=== PATIENT | male | born 1965 | race Caucasian/White ===

== ENCOUNTER 2016-12-22 19:00 | Observation (INO) | payer OTHER, BC ==
[~2016-12-22] VITALS: Ht 180.3 cm; Wt 110.0 kg
[2016-12-22 19:47] LABS: HEMATOCRIT 47.5 % (38.0-50.0); MCH 29.3 PG (29.0-34.0); MCHC 32.8 G/DL (30.0-36.0); MCV 89.1 FL (86-99); MEAN PLAT.VOLUME 10.4 uM^3 (9.0-12.4); PLATELET COUNT 260 K/uL (156-360); RBC DIS.WIDTH-CV 13.5 % (11.8-14.6); RBC DIS.WIDTH-SD 43.9 % (39-53); RED BLOOD COUNT 5.33 M/uL (4.00-5.50); WHITE BLOOD COUNT 7.3 K/uL (4.1-10.2)
[2016-12-22 20:01] LABS: CHLORIDE 103 mEq/L (99-109); POTASSIUM 3.5 mEq/L (3.7-5.4); SODIUM 141 mEq/L (136-147)
[2016-12-22 20:03] LABS: GLUCOSE 141 mg/dL (70-99)
[2016-12-22 20:04] LABS: ANION GAP 12 MEQ/L (2-14)
[2016-12-22 20:05] LABS: TOTAL BILIRUBIN 0.5 mg/dL (0.0-1.0)
[2016-12-22 20:06] LABS: ALKALINE PHOSPHATASE 65 IU/L (3-129)
[2016-12-22 20:07] LABS: GFR ESTIMATE (CALCULATED) > 59 mL/min/
[2016-12-22 20:08] LABS: UREA NITROGEN (BUN) 19 mg/dL (9-23)
[2016-12-22 20:15] LABS: TROP-I INTERPRETATION NEGATIVE; TROPONIN-I < 0.01 ng/mL (0.0-0.30)
[2016-12-23 00:02] VITALS: BP 120/69
[2016-12-23 01:41] LABS: HEMATOCRIT 43.8 % (38.0-50.0); MCH 28.7 PG (29.0-34.0); MCHC 32.4 G/DL (30.0-36.0); MCV 88.5 FL (86-99); MEAN PLAT.VOLUME 10.5 uM^3 (9.0-12.4); PLATELET COUNT 229 K/uL (156-360); RBC DIS.WIDTH-CV 13.4 % (11.8-14.6); RBC DIS.WIDTH-SD 43.6 % (39-53); RED BLOOD COUNT 4.95 M/uL (4.00-5.50); WHITE BLOOD COUNT 7.6 K/uL (4.1-10.2)
[2016-12-23 01:49] LABS: CHLORIDE 106 mEq/L (99-109); POTASSIUM 3.7 mEq/L (3.7-5.4); SODIUM 140 mEq/L (136-147)
[2016-12-23 01:51] LABS: GLUCOSE 131 mg/dL (70-99)
[2016-12-23 01:52] LABS: ANION GAP 8 MEQ/L (2-14)
[2016-12-23 01:55] LABS: GFR ESTIMATE (CALCULATED) > 59 mL/min/
[2016-12-23 01:56] LABS: UREA NITROGEN (BUN) 19 mg/dL (9-23)
[2016-12-23 02:03] LABS: TROP-I INTERPRETATION NEGATIVE; TROPONIN-I < 0.01 ng/mL (0.0-0.30)
[2016-12-23 03:06] LABS: HDL CHOLESTEROL 29 MG/DL (Desirable>=40); LDL CHOLESTEROL 102 mg/dL (Desirable<100); NON-HDL CHOLESTEROL 151 mg/dL (Desirable<160); TOTAL CHOLESTEROL 180 mg/dL (Desirable<200); TRIGLYCERIDES 247 MG/DL (Normal: <150)
[2016-12-23 05:00] VITALS: BP 132/80
[2016-12-23 06:58] LABS: Estimated Average Glucose 131 mg/dL (70-123); HEMOGLOBIN A1c (GLYCOHEMOGLOB) 6.2 % HGB (Below 5.7)
[2016-12-23 08:00] VITALS: BP 123/83
[2016-12-23 09:37] LABS: TROP-I INTERPRETATION NEGATIVE; TROPONIN-I < 0.01 ng/mL (0.0-0.30)
[2016-12-23 11:40] VITALS: BP 155/84
[2016-12-23] MEDS ORDERED: NITROSTAT0.4 MG SL (12:43)
[2016-12-23] MEDS ORDERED: ASPIR-LOW81 MG PO (12:43)
[2016-12-23] MEDS ORDERED: PANTOPRAZOLE SO40 MG PO (13:05)
== END 2016-12-23 13:29 | disposition home or self-care (01) ==
LOC: EME 19:00 → EDOF 22:24 → 5WEST 22:24
PROVIDERS: Internal Medicine; Physician Assistant
DX: R07.89 Other chest pain (principal); R07.2 Precordial pain; K21.9 Gastro-esophageal reflux disease without esophagitis
CPT/HCPCS: 71020; 80048; 80053; 80061; 83036; 84484; 85027; 85379; 93005; 99281; 99285; G0378; J1650; J7030